=== PATIENT | female | born 1945 | race Caucasian/White ===

== ENCOUNTER → 2018-08-03 | Outpatient (CLI) | payer BC ==
[2014-12-04 11:23] VITALS: BP 119/64
[~2018-08-03] MED LIST: ASCO10002 PO; ASPI81TA59 PO; COCO1000 PO; CONTRAST GIVEN. MC PRN; CRESTOR10 MG PO; ESTR0.3T PO; IOHEXOL 240 MG/ML 50ML VIAL. PO ONE; IOHEXOL 300 MG/ML 100ML VIAL. IV ONE; METO-269 PO; METO100T5 PO; MIRA25TA PO; OMEP40CA5 PO
--- NOTE | 2018-08-03 13:35 | RAD ---
EXAM: CT Chest, Abdomen and Pelvis with IV contrast CLINICAL HISTORY: MARGINAL ZONE LYMPHOMA, surveillance, follow-up COMPARISON: 06/23/2017, 06/14/2016 TECHNIQUE: Helical CT of the chest, abdomen and pelvis was performed following the administration of intravenous contrast. Oral contrast was administered. Axial, coronal and sagittal reformatted images were generated. ---PQRS compliance statement - One or more of the following individualized dose reduction techniques were utilized for this study: 1. Automated exposure control 2. Adjustment of the mA and/or kV according to patient size 3. Use of iterative reconstruction technique--- FINDINGS: Chest: The heart is not enlarged. No pericardial effusion. Coronary artery calcifications are seen. No mediastinal or hilar lymphadenopathy. No axillary lymphadenopathy. Small left pleural effusion. No significant right pleural effusion. No pneumothorax. The region of the small left pleural effusion there is associated pleural thickening and parenchymal lung opacity. Lingular opacities are also seen. No lobar consolidation. A 3 mm right lower lobe lung nodule (image 31) is seen, stable to 06/14/2016. Additional <4 mm lung nodules are seen bilaterally stable to 06/14/2016. Abdomen and Pelvis: Focal low-attenuation adjacent to the falx from ligament likely focal fatty infiltration. Otherwise no focal liver lesion. Ectasia of the left portal vein. Gallbladder is normal. No biliary ductal dilatation. Spleen is borderline enlarged measuring 12.6 cm in length. Adrenal glands and pancreas are grossly normal. Symmetric nephrograms. No focal renal lesion. No hydronephrosis. No hydroureter. No abdominal or pelvic lymphadenopathy. No abdominal or pelvic ascites. Moderate colonic stool content is seen. Appendix is normal. Oral contrast material seen to the level of the splenic flexure. There has been a hysterectomy. Decompressed bladder is otherwise unremarkable. Other scarring calcifications of aorta are seen which otherwise remains normal in caliber. Bones: Degenerative changes of the spine are seen. IMPRESSION: 1. There is now a small left pleural effusion with associated left lung base parenchymal opacities/scarring. This is new compared to prior CT 06/23/2017. 2. No thoracic lymphadenopathy. No abdominal or pelvic lymphadenopathy. 3. Multiple <4 mm lung nodules are stable to at least 06/14/2016. Electronically signed by: Venkatesh Molina MD (08/03/2018 1:32 PM) [facility]
== END | disposition home or self-care (01) ==
LOC: CT 09:23
PROVIDERS: ATTEND Internal Medicine Hematology & Oncology
DX: J90 Pleural effusion, not elsewhere classified (principal); I70.0 Atherosclerosis of aorta; I81 Portal vein thrombosis; I25.10 Atherosclerotic heart disease of native coronary artery without angina pectoris; R91.8 Other nonspecific abnormal finding of lung field; Z85.72 Personal history of non-Hodgkin lymphomas
CPT/HCPCS: 71260; 74177

== ENCOUNTER → 2019-07-18 | Outpatient (CLI) | payer BC ==
[2014-12-04 11:23] VITALS: BP 119/64
[~2019-07-18] MED LIST changes: +OMEP40CA45 PO; -OMEP40CA5 PO
[2019-07-18 09:38] LABS: ALBUMIN 4.3 g/dL (3.4-5.0); ALBUMIN/GLOBULIN RATIO 1.5 (1.0-1.7); CALCIUM 9.3 mg/dL (8.5-10.1); CREATININE 0.8 mg/dL (0.6-1.0); GFR 70.5; POTASSIUM 3.6 mmol/L (3.5-5.1); TOTAL BILIRUBIN 0.5 mg/dL (0.2-1.0); TOTAL PROTEIN 7.1 g/dL (6.4-8.2)
--- NOTE | 2019-07-18 16:10 | RAD ---
CT study of the chest and abdomen and pelvis with contrast Clinical indications: Marginal zone lymphoma. Follow-up study. COMPARISON: August 03, 2018. TECHNIQUE: After IV infusion of 75 cc of Omnipaque 300, helical CT scanning of the chest and abdomen and pelvis was performed. GI contrast was administered per mouth. PQRS compliance Statement One or more of the following individualized dose reduction techniques were utilized for this study: 1. Automated exposure control 2. Adjustment of the mA and/or kV according to patient size 3. Use of iterative reconstruction technique CHEST CT: No enlarging thoracic lymphadenopathy is evident. No focal aneurysmal dilatation or dissection of the thoracic aorta is seen. The heart size is normal and no pericardial effusion is seen. No enlarging lung nodule is seen. No lung mass or lung consolidation is evident. No pleural effusion or pneumothorax is seen. The proximal bronchial tree is patent. No lytic process is seen. IMPRESSION: No new abnormality. Previously seen left-sided pleural effusion has cleared. ABDOMEN AND PELVIS CT: Diffuse fatty infiltration of the liver is evident. The spleen measures 12.8 cm in length which is at the upper limits of normal. It is unchanged in size. The pancreas is normal. The gallbladder is normal and no extra hepatic biliary ductal dilatation is seen. No adrenal mass is evident. Both kidneys are normal without hydronephrosis or hydroureter. Urinary bladder is not abnormally distended. No focal aneurysmal dilatation of the abdominal aorta is seen. No enlarged abdominal or pelvic lymphadenopathy is evident. The uterus is surgically absent. Sigmoid diverticulosis is seen without diverticulitis. The appendix is normal. The terminal ileum is unremarkable. No obstructive bowel pattern is evident. No free air or free fluid or mesenteric edema is seen. A metallic fragment is seen within the right side of the L3 vertebral body. No lytic process is seen. IMPRESSION: No acute abnormality of the abdomen or pelvis. No new abnormality is seen. Electronically signed by: Bakari Morgan MD (07/18/2019 4:07 PM) [facility]
== END | disposition home or self-care (01) ==
LOC: CT 08:58
PROVIDERS: ATTEND Internal Medicine Hematology & Oncology
DX: K57.30 Diverticulosis of large intestine without perforation or abscess without bleeding (principal); K76.0 Fatty (change of) liver, not elsewhere classified; I10 Essential (primary) hypertension; C85.80 Other specified types of non-Hodgkin lymphoma, unspecified site; Z79.01 Long term (current) use of anticoagulants; Z90.710 Acquired absence of both cervix and uterus
CPT/HCPCS: 36415; 71260; 74177; 80053; Q9966; Q9967